=== PATIENT | female | born 1935 | race Caucasian/White ===

== ENCOUNTER 2018-01-04 17:49 | Emergency (ER) | payer MEDICARE ==
[~2018-01-04] VITALS: Ht 154.9 cm; Wt 60.0 kg
[~2018-01-04 17:49] MED LIST: ALENDRONATE70 MG PO; AMLODIPINE2.5 MG PO; ASPIRIN CHLD81 M1 OR; BACTRIM DS1 TAB PO; BL ADULT ASA81 MG PO; CALCIUM + D600 MG PO; CALCIUM600 M1 PO; CHOLESTYRAM4 G1 OR; CRESTOR10 MG PO; FOSAMAX35 MG PO; HYDROCHLOROT12.5 M1 PO; KLOR-CON 1010 MEQ PO; LEVOTHYROXIN125 MC1 PO; LEVOXYL100 MCG PO; LISINOPRIL5 MG PO; LORTAB 5 OR; LORTAB5 PO; MULTI VIT PO; NORCO1 TA1 PO; PERCOCET 5/325M1 TAB PO; QUESTRAN4 GM PO; SYNTHROID88 MCG PO; ULTRAM50 M1 PO; ZOCOR20 M1 PO; ZOCOR80 MG OR
[2018-01-04 18:38] LABS: IMMATURE GRANULOCYTES 0.3 % (0.0-5.0); MEAN CELL VOLUME 98.5 fL CALC (80.0-100.0); MEAN CORPUSCULAR HGB 32.8 pG CALC (26.0-32.0); MEAN CORPUSCULAR HGB CONC 33.3 g/L CALC (32.0-36.0); NEUT# 6.41 thou/uL (2.00-7.15); RED BLOOD COUNT 3.96 mill/uL (4.20-5.60); RED CELL DISTRI WIDTH 12.5 % (11.5-15.5)
[2018-01-04 18:49] LABS: ANION GAP 11 (6-22 (CALC)); BUN 21 mg/dL (8-23); BUN/CREATININE RATIO 20 (12-20 (CALC)); CARBON DIOXIDE 25 mmol/l (22-30); CHLORIDE 105 mmol/l (95-108); GFR 53 ML/MIN (>=60 (CALC)); GFR FOR AFR.AMER. > 60 ML/MIN (>=60 (CALC)); POTASSIUM 4.8 mmol/l (3.5-5.1); SODIUM 136 mmol/l (137-146)
[2018-01-04 19:23] VITALS: BP 96/80
== END 2018-01-04 19:23 | disposition short-term general hospital (02) ==
LOC: ED 17:49
PROVIDERS: Family Medicine
PROC: 0QS9XZZ Reposition Left Femoral Shaft, External Approach (ICD-10-PCS; principal; 2018-01-04)
PROC: 0BH17EZ Insertion of Endotracheal Airway into Trachea, Via Natural or Artificial Opening (ICD-10-PCS; 2018-01-04)
DX: S72.8X2A Other fracture of left femur, initial encounter for closed fracture (principal); J98.8 Other specified respiratory disorders; W01.0XXA Fall on same level from slipping, tripping and stumbling without subsequent striking against object, initial encounter; Y92.007 Garden or yard of unspecified non-institutional (private) residence as the place of occurrence of the external cause
CPT/HCPCS: L1830

== ENCOUNTER → 2018-04-08 | Outpatient (REF) | payer MEDICARE | END | disposition home or self-care (01) | LOC: DI 08:49 | PROVIDERS: ATTEND Internal Medicine | DX: R05 Cough (principal) ==

== ENCOUNTER → 2018-04-20 | Outpatient (REF) | payer MEDICARE | END | disposition home or self-care (01) | LOC: ULTRASND 13:26 | PROVIDERS: ATTEND Internal Medicine | DX: I82.622 Acute embolism and thrombosis of deep veins of left upper extremity (principal) ==

== ENCOUNTER → 2020-10-18 | Outpatient (REF) | payer MEDICARE ==
[2020-10-18 10:41] LABS: CREATININE 1.1 mg/dL (0.5-1.0)
[2020-10-18 10:51] LABS: BILIRUBIN, TOTAL 0.5 mg/dL (0.0-1.4); POTASSIUM 5.2 mmol/l (3.5-5.1)
[2020-10-18 11:08] LABS: TSH, 3RD GENERATION 0.57 uIU/mL (0.47 - 4.68)
== END | disposition home or self-care (01) ==
LOC: LAB 09:35
PROVIDERS: ATTEND Internal Medicine
DX: E03.9 Hypothyroidism, unspecified (principal); I10 Essential (primary) hypertension

== ENCOUNTER 2021-12-03 09:37 | Emergency (ER) | payer MEDICARE ==
[2021-12-03] VITALS (9 sets, daily range): BP systolic 138–165; BP diastolic 84–111
[~2021-12-03] VITALS: Ht 154.9 cm; Wt 60.0 kg
[2021-12-03] MEDS ORDERED: CEPHALEXIN500 M1 PO (11:43)
== END 2021-12-03 11:59 | disposition home or self-care (01) ==
LOC: ED 09:37
DX: L03.114 Cellulitis of left upper limb (principal)

== ENCOUNTER 2022-04-16 10:25 | Emergency (ER) | payer MEDICARE ==
[~2022-04-16] VITALS: Ht 154.9 cm; Wt 54.5 kg
[2022-04-16] VITALS (9 sets, daily range): BP systolic 141–181; BP diastolic 77–133
[~2022-04-16 10:25] MED LIST changes: +CEPHALEXIN500 M1 PO
[2022-04-16] MEDS ORDERED: METOPROL TAR25 MG PO (10:59)
[2022-04-16 11:38] LABS: BASO% 0.3 % (0-3); EOS% 0.2 % (0-8); HEMATOCRIT 42.4 % (37.0-47.0); HEMOGLOBIN 13.8 g/dl (12.0-16.0); IMMATURE GRANULOCYTES 0.9 % (0.0-5.0); LYMPH% 11.4 % (15-41); MEAN CELL VOLUME 98.4 fL CALC (80.0-100.0); MEAN CORPUSCULAR HGB CONC 32.5 g/dL CAL (32.0-36.0); NEUT# 7.81 thou/uL (2.00-7.15); NEUT% 78.2 % (42-76); RED BLOOD COUNT 4.31 mill/uL (4.20-5.60); RED CELL DISTRI WIDTH 12.7 % (11.5-15.5)
[2022-04-16 11:57] LABS: ALBUMIN 3.7 g/dL (3.2-5.0); ALKALINE PHOSPHATASE 92 u/l (38-126); BILIRUBIN, TOTAL 0.8 mg/dL (0.02-1.3); BUN 14 mg/dL (8-23); BUN/CREATININE RATIO 15 (12-20 (CALC)); CARBON DIOXIDE 26 mmol/l (22-30); CHLORIDE 100 mmol/l (95-108); CREATININE 0.9 mg/dL (0.5-1.0); GFR FOR AFR.AMER. > 60 ML/MIN (>=60 (CALC)); GFR OTHER RACES 59 ML/MIN (>=60 (CALC)); SGOT/AST 27 u/l (9-36); SODIUM 134 mmol/l (137-146); TOTAL PROTEIN 6.7 g/dL (6.3-8.2)
[2022-04-16 12:01] LABS: ANION GAP 12 (6-22 (CALC)); POTASSIUM 3.9 mmol/l (3.5-5.1)
[2022-04-16] MEDS ORDERED: CEFDINIR300 MG PO (12:24)
== END 2022-04-16 12:43 | disposition home or self-care (01) ==
LOC: ED 10:25
PROVIDERS: Family Medicine
DX: M25.521 Pain in right elbow (principal); E78.5 Hyperlipidemia, unspecified